=== PATIENT | female | born 1950 | race African-American/Black ===

== ENCOUNTER 2019-05-15 16:54 | Emergency (ER) | payer MEDICARE ==
[2019-05-15 17:03] VITALS: BMI 35.8
--- NOTE | 2019-05-15 18:54 | PDOC ---
History of Present Illness - General Chief Complaint: Vaginal Bleeding Stated Complaint: VAGINAL BLEEDING Time Seen by Provider: 05/15/19 18:04 - History of Present Illness Initial Comments: 05/15/19 19:02 68 y/o F hx of HTN and diabetes presenting to ED with few hours of vaginal bleeding. Bleeding began suddenly not precipitated by any trauma/sexual encounter. She describes it as "light" using up 2 panty liners since it began. 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 She denies any abdominal pain/ cramping, any vaginal pain or other discharge. She denies any nausea, vomiting, hormone replacement use, dysuria, frequency or urgency. Past History - Past Medical History Allergies/Adverse Reactions: Allergies Allergy/AdvReac Type Severity Reaction Status Date / Time No Known Allergies Allergy Verified 05/15/19 17:03 Home Medications: Ambulatory Orders Amlodipine Besylate 10 mg PO DAILY 05/15/19 Atenolol [Tenormin -] 100 mg PO DAILY 05/15/19 Cephalexin [Keflex] 500 mg PO BID 7 Days #14 capsule 05/15/19 Glipizide 10 mg PO DAILY 05/15/19 Hydrochlorothiazide 12.5 mg PO DAILY 05/15/19 Lisinopril [Prinivil -] 40 mg PO DAILY 05/15/19 Metformin HCl [Glucophage] 1,000 mg PO DAILY 05/15/19 COPD: No Diabetes: Yes HTN: Yes - Suicide/Smoking/Psychosocial Hx Smoking History: Never smoked Review of Systems - Review of Systems All Other Systems: Reviewed and Negative *Physical Exam - Vital Signs Last Vital Signs Temp Pulse Resp BP Pulse Ox 98.6 F 76 18 210/91 H 97 05/15/19 17:00 05/15/19 17:00 05/15/19 17:00 05/15/19 17:00 05/15/19 17:00 - Physical Exam General Appearance: Yes: Nourished, Appropriately Dressed. No: Apparent Distress HEENT: positive: Normal Voice. negative: Scleral Icterus (R), Scleral Icterus ( L) Respiratory/Chest: positive: Lungs Clear, Normal Breath Sounds. negative: Chest Tender, Respiratory Distress, Accessory Muscle Use, Labored Respiration, Decreased Breath Sounds, Rales, Wheezing Cardiovascular: positive: Regular Rhythm, Regular Rate, S1, S2. negative: JVD Female Pelvic Exam: positive: normal external exam, vaginal bleeding (blood in the posterior vaginal vault. cervical os not visualized. No other discharge appreciated.). negative: lesions, Bartholin mass, adnexal tenderness Gastrointestinal/Abdominal: positive: Normal Bowel Sounds. negative: Soft, Pulsatile Mass, Distended, Guarding, Rebound, Tenderness Musculoskeletal: positive: Normal Inspection. negative: CVA Tenderness Extremity: positive: Normal Capillary Refill, Normal Inspection, Normal Range of Motion Integumentary: positive: Normal Color, Dry, Warm Neurologic: positive: Fully Oriented, Alert, Normal Mood/Affect, Normal Response ED Treatment Course - LABORATORY CBC & Chemistry Diagram: 05/15/19 18:58 05/15/19 18:58 Medical Decision Making - Medical Decision Making 05/15/19 19:05 68 y/o F with dysfunctional uterine bleeding -cbc,cmp, coags, UA and transvaginal ultrasound - Pt. BP 210/91 on arrival .Did not take her BP medications this a.m. - Received home medications. 05/15/19 19:50 05/15/19 22:45 Large amount of complex fluid in the emdometrium most likely due to hemorrhage and superimposed infection cannot be excluded. Complex heterogeneous nonpecific approx [id number] mass in posterior fundus with internal blood flow suspicious for endometrial carcinoma or uterine carcinoma with indeterminate depth of malignant invasion of the posterior uterine myometrium. mild non specific heterogeneous echogenicity in the uterine myometrium most likely due to malignant invasion of the complex endometrial mass OB consultation and biopsy recommended *DC/Admit/Observation/Transfer Diagnosis at time of Disposition: Abnormal vaginal bleeding in postmenopausal patient UTI (urinary tract infection) Qualifiers: Urinary tract infection type: site unspecified Hematuria presence: with hematuria Qualified Code(s): N39.0 - Urinary tract infection, site not specified - Discharge Dispostion Decision to Admit order: No - Prescriptions Prescriptions: Cephalexin [Keflex] 500 mg PO BID 7 Days #14 capsule - Referrals Referrals: Luis Fernando Diaz MD [Staff Physician] - Bean Marinelli MD [Staff Physician] - - Patient Instructions Printed Discharge Instructions: DI for Urinary Tract Infection (UTI), Postmenopausal Bleeding Additional Instructions: 1.You were also seen for vaginal bleeding. This is not normal in a woman your age. It is important you follow up with your Retail Receiving Clerk for full evaluation and cause of your bleeding. Return to the ED if bleeding worsens. Your ultrasound showed concerning findings in your uterus which require URGENT follow up with a merchandise team manager. I have reffered you to one in this packet. Follow up within the week. urgent staging and grading is required 2. UTI You were prescribed antibiotics, take them exactly as your caregiver instructs you. Finish the medication even if you feel better! Drink enough water and fluids to keep your urine clear or pale yellow. Avoid caffeine, tea, and carbonated beverages - these can irritate your bladder. Empty your bladder often. Avoid holding urine for long periods of time. Empty your bladder before and after sexual intercourse. After a bowel movement, women should cleanse from front to back. Use each tissue only once. SEEK MEDICAL CARE IF: You have back pain. You develop a fever. Your symptoms do not begin to resolve within 3 days. SEEK IMMEDIATE MEDICAL CARE IF: You have severe back pain or lower abdominal pain. You develop chills. You have nausea or vomiting. You have continued burning or discomfort with urination. - Post Discharge Activity
[2019-05-15] MEDS ORDERED: LISINOPRIL 20 MG TABLET (FP) PO ONE (18:56)
[2019-05-15] MEDS ORDERED: amLODIPine BESYLATE 10 MG TABLET (FP) PO ONE (18:56)
[2019-05-15] MEDS ORDERED: ATENOLOL 50 MG TABLET (FP) PO ONE (18:56)
[2019-05-15] MEDS ORDERED: HYDROCHLOROTHIAZIDE 12.5 MG CAPSULE (FP) PO SCH (19:00)
[2019-05-15] MEDS ORDERED: HYDROCHLOROTHIAZIDE 25 MG TABLET (FP) ONE (19:03)
[2019-05-15] MEDS ORDERED: LISINOPRIL 20 MG TABLET (FP) ONE (19:03)
[2019-05-15] MEDS ORDERED: amLODIPine BESYLATE 5 MG TABLET (FP) ONE (19:03)
[2019-05-15] MEDS ORDERED: ATENOLOL 25 MG TABLET (FP) ONE (19:03)
[2019-05-15 19:16] LABS: EPI CELLS 4.6 /HPF (0-5/HPF); HYALINE CASTS 8 /lpf (0-8); PH,URINE 5.5 (5.0-8.0); URINE APPEARANCE TURBID; URINE BILIRUBIN NEGATIVE (NEGATIVE); URINE COLOR ORANGE; URINE GLUCOSE (UA) NEGATIVE (NEGATIVE); URINE KETONE TRACE (NEGATIVE); URINE LEUK ESTERASE 2+ (NEGATIVE); URINE NITRITE NEGATIVE (NEGATIVE); URINE PROTEIN 4+ (NEGATIVE); URINE WBC 1066 /hpf (0-5)
[2019-05-15 19:16] LABS: BASO % 0.5 % (0-2.0); HEMATOCRIT 39.9 % (32.4-45.2); HEMOGLOBIN 13.2 GM/dL (10.7-15.3); LYMPH % 20.9 % (8-40); MCH 28.9 pg (25.7-33.7); MCHC 33.1 g/dl (32.0-36.0); MEAN CELL VOLUME 87.3 fl (80-96); MONO % 5.6 % (3.8-10.2); PLATELET COUNT 221 K/MM3 (134-434); RBC 4.57 M/mm3 (3.60-5.2); RDW 14.4 % (11.6-15.6); WHITE BLOOD COUNT 8.6 K/mm3 (4.0-10.0)
[2019-05-15 19:26] LABS: INR 1.03 (0.83-1.09); PROTHROMBIN TIME (PATIENT) 12.2 SEC (9.7-13.0)
[2019-05-15 19:47] LABS: URINE RBC 160.3 /hpf (0-4); YEAST NONE SEEN (NEGATIVE)
--- NOTE | 2019-05-15 19:47 | PDOC ---
Documentation entered by Zarina Deleon SCRIBE, acting as scribe for Larry Samaniego MD. Larry Samaniego MD: This documentation has been prepared by the Adrienne singletary Xhesika, SCRIBE, under my direction and personally reviewed by me in its entirety. I confirm that the documentation accurately reflects all work, treatment, procedures, and medical decision making performed by me. Attending Attestation - Resident Resident Name: Gretta Hoyt - HPI HPI: 05/15/19 18:51 The patient is a 68 year old female with a significant PMH of DM and HTN who presents to the emergency department with 2hrs of sudden onset vaginal bleeding. Patient notes she used 1/2 pads today. Denies any previous history of vaginal bleeding or vaginal discharge. Denies any sexual activity. Denies dysuria, frequency, urgency and hematuria. Allergies: NKDA - Physicial Exam PE: 05/15/19 19:46 Patient is awake and alert, well-nourished, in no distress Normocephalic and atraumatic PERRLA, EOMI CTA RRR Abdomen is soft, nontender, nondistended - Medical Decision Making 05/15/19 19:46 Patient 68-year-old female who presents with atraumatic vaginal bleeding on the day of arrival. Patient's hypertensive due to the fact that she hadn't taken her morning antihypertensive medications. Patient's otherwise hemodynamically stable. Pelvic exam performed by Dr. Bullock shows small amount of blood but no active bleeding. Will obtain CBC/CMP/PTT. Will obtain transvaginal ultrasound. Patient will require follow-up with LIVING SUPERVISOR for endometrial biopsy
[2019-05-15 19:52] LABS: URINE BACTERIA MODERATE /hpf (NEGATIVE)
[2019-05-15 20:00] LABS: ALBUMIN 3.6 g/dl (3.4-5.0); BILIRUBIN,TOTAL 0.2 mg/dL (0.2-1); BLOOD UREA NITROGEN 20.4 mg/dL (7-18); CALCIUM 9.8 mg/dL (8.5-10.1); CREATININE 1.6 mg/dL (0.55-1.3); POTASSIUM 3.7 mmol/L (3.5-5.1); TOT PROT 7.7 g/dl (6.4-8.2)
[2019-05-15] MEDS ORDERED: SODIUM CHLORIDE 1,000 ML IV STA (20:11)
[2019-05-15 23:06] VITALS: BP 190/87; PULSE 68; TEMP 98.4
== END 2019-05-15 22:55 | disposition home or self-care (01) ==
LOC: JER 16:54
PROC: 3E0337Z Introduction of Electrolytic and Water Balance Substance into Peripheral Vein, Percutaneous Approach (ICD-10-PCS; principal; 2019-05-15)
DX: N95.0 Postmenopausal bleeding (principal); N39.0 Urinary tract infection, site not specified
CPT/HCPCS: 36415; 76830-TC; 80053; 81003; 85025; 85610; 85730; 96360; 99284-25; J7030